=== PATIENT | female | born 1980 | race Caucasian/White ===

== ENCOUNTER 2021-05-30 12:47 | Outpatient (CLI) | payer BC, SELFPAY ==
[2021-05-30 12:59] VITALS: BP 100/55; PULSE 102; RESP 20; TEMP 37.4; O2SAT 92; BMI 32.3
[2021-05-30] MEDS: 0.9% Saline Lock 10 ML Syringe IV (13:11)
[2021-05-30 13:40] VITALS: BP 101/48; PULSE 91; RESP 16; TEMP 37; O2SAT 92
[2021-05-30 14:29] VITALS: BP 104/61; PULSE 93; RESP 16; TEMP 37; O2SAT 92
== END 2021-05-30 14:43 | disposition home or self-care (01) ==
LOC: MS3OUT 12:47 → MS3 12:49
PROVIDERS: Referring Provider Nurse Practitioner Adult Health; Visit Provider Nurse Practitioner Adult Health
DX: Z23 Encounter for immunization (principal); U07.1 COVID-19
CPT/HCPCS: J7050; M0245; Q0245; A4216